=== PATIENT | male | born 1965 | race African-American/Black ===

== ENCOUNTER 2024-07-24 06:39 | Day surgery (SDC) | payer BC ==
[2024-07-24] MEDS ORDERED: CEFAZOLIN 2 GM/100 ML NaCl 2 GM/100 ML IVPB IV ONE (07:25)
[2024-07-24] MEDS ORDERED: Sodium Chloride 0.9% 1000 ML 1,000 ML ONE ×2 (07:26→11:11)
[2024-07-24] MEDS: CEFAZOLIN 2 GM/100 ML NaCl 2 GM/100 ML IVPB IV SCH (07:29)
[2024-07-24] MEDS: Sodium Chloride 0.9% 1000 ML 1,000 ML IV SCH (07:29)
[2024-07-24] MEDS ORDERED: Lactated Ringers 1,000 ML IV SCH (07:30)
[2024-07-24] MEDS ORDERED: NEURONTIN ONE (07:31)
[2024-07-24] MEDS: celeBREX 100 MG PO ONE (07:31)
[2024-07-24] MEDS: NEURONTIN PO ONE (07:31)
[2024-07-24] MEDS ORDERED: celeBREX 100 MG ONE (07:31)
[2024-07-24 07:36] VITALS: RESP 16
[2024-07-24 07:46] LABS: Hematocrit 46.1 % (40.1-51.0); Hemoglobin 14.9 g/dL (13.7-17.5); Mean Cell Volume 89.2 fL (79.0-92.2); Mean Corpuscular Hemoglobin 28.8 pg (25.7-32.2); Mean Corpuscular Hgb Concent. 32.3 g/dL (32.3-36.5); Mean Platelet Volume 9.3 fL (9.4-12.4); Platelet Count 201 x10^3/uL (163-337); Red Blood Count 5.17 x10^6/uL (4.63-6.08); Red Cell Distribution Width 14.2 % (11.6-14.4); White Blood Count 3.5 x10^3/uL (4.23-9.07)
[2024-07-24 07:57] LABS: ALBUMIN 3.9 g/dL (3.5-5.0); ANION GAP 14.4 MEQ/L (5-15); BILIRUBIN,TOTAL 0.5 mg/dL (0.2-1.3); Creatinine 1 0.71 mg/dL (0.66-1.25); EST GLOMERULAR FILTRATION RATE 106.4 ML/MIN; Potassium 4.1 mmol/L (3.5-5.1); Total Protein 6.9 g/dL (6.3-8.2)
[2024-07-24] MEDS ORDERED: Xylocaine 1% Vial 30 ML PF IJ ONE (10:19)
[2024-07-24] MEDS ORDERED: Marcaine Mpf 0.5% Vial 30 Ml ONE (10:19)
[2024-07-24] MEDS ORDERED: Versed 2 MG/2 ML Injection ONE (10:32)
[2024-07-24] MEDS ORDERED: SUBLIMAZE 100 MCG/2 ML ONE ×2 (10:32→11:44)
[2024-07-24] MEDS ORDERED: propofoL IV ONE (10:36)
[2024-07-24] MEDS ORDERED: Xylocaine-Mpf 2% 5 Ml Vial ONE (10:36)
[2024-07-24] MEDS ORDERED: ROCURONIUM BROMIDE IV ONE (10:36)
[2024-07-24] MEDS ORDERED: Lactated Ringers 0 ML IV ONE (10:41)
[2024-07-24] MEDS ORDERED: Ephedrine Sulfate 50 MG/ML ONE (11:15)
[2024-07-24] MEDS ORDERED: Zofran 4 MG/2 ML VIAL ONE (12:40)
[2024-07-24] MEDS ORDERED: BRIDION 200MG/2ML IV ONE (12:40)
--- NOTE | 2024-07-24 12:57 | XRAY ---
Indication: Left 1st MTP arthrodesis, 2nd Airam osteotomy, 2nd/3rd plantar plate repair, 2nd hammertoe, medial collateral ligament repair, and 3rd toe flexor tenotomy. Intraoperative fluoroscopy provided for 1 minute and 55 seconds. 15 digital spot images submitted for interpretation ultimately demonstrates 1st MTP arthrodesis, fusion 2nd toe, and 2nd metatarsal head Airam osteotomy. Correlate with intraoperative findings/report.
--- NOTE | 2024-07-24 13:43 | XRAY ---
1 minute 55 seconds of fluoroscopy used in surgery for a left 1st MTP arthrodesis, 2nd Airam osteotomy, 2nd/3rd plantar plate repair, 2nd hammertoe, medial collateral ligament repair, and 3rd toe flexor tenotomy.
[2024-07-24] MEDS ORDERED: DILAUDID 0.5 MG/0.5 ML SYRINGE ONE (14:20)
[2024-07-24 14:49] VITALS: PULSE 61; TEMP 96.6; O2SAT 94
[2024-07-24 15:23] VITALS: BP 147/95
[2024-07-24] MEDS ORDERED: ZOFRAN ODT 4 MG ONE (15:24)
[2024-07-24] MEDS: ZOFRAN ODT 4 MG PO ONE (15:24)
--- NOTE | 2024-07-26 10:54 | OP ---
SURGERY DATE/TIME: 07/24/2024 7449-1112 PREOPERATIVE DIAGNOSES: 1) Left foot pain. 2) First metatarsophalangeal joint osteoarthritis. 3) Severe hallux valgus. 4) Metatarsal deformity. 5) Hammertoes, digits 2 and 3. 6) Plantar plate tear. 7) Diabetes mellitus, controlled. POSTOPERATIVE DIAGNOSES: 1) Left foot pain. 2) First metatarsophalangeal joint osteoarthritis. 3) Severe hallux valgus. 4) Metatarsal deformity. 5) Hammertoes, digits 2 and 3. 6) Plantar plate tear. 7) Diabetes mellitus, controlled. PROCEDURES: 1) Left first metatarsophalangeal joint arthrodesis. 2) Airam osteotomy, second metatarsal. 3) Plantar plate repair, second metatarsophalangeal joint. 4) Hammertoe correction with proximal interphalangeal joint arthrodesis. 5) Flexor tenotomy of 3rd digit, left foot. SURGEON: Jonathan Scott MD [facility] OPERATOR: ULI Dotson, and Peng Parker NP-Danni. ANESTHESIA: General plus a postoperative ankle block to the left lower extremity. HEMOSTASIS: A thigh tourniquet set to 300 mmHg for a total of 25 total tourniquet minutes. ESTIMATED BLOOD LOSS: Approximately 30 mL. INJECTABLES: 30 mL of a 1:1 mixture of 1% lidocaine plain and 0.5% bupivacaine plain injected in an ankle block type fashion to the left ankle. INDICATIONS: Patient is a very pleasant 58-year-old male who presented to my service accompanied by his for pain to the left lower extremity, primarily as a result of overload of the second metatarsophalangeal joint. Patient did have a procedure in [address] Lofton, who was able to correct his hallux abductovalgus with a Lapidus procedure. However, patient does have such a severe, rigid contracture of his first MPJ and such tightness of his soft tissue that a recurrence of the hallux abductovalgus did occur. The intermetatarsal angle 1, 2 had been reduced very effectively; however, there was some residual dorsiflexion of the first ray resulting in overload of the second MPJ. As a result, patient did have a plantar plate tear as well as significant transverse plane and deformity of both the hallux and the 2nd digit as well as further contractures of the 3rd and 4th digits that were flexible. In conjunction with this, there was also a flexor contracture at the level of the PIPJ and a dorsiflexion contracture at the level of the MPJ of the second. Given all of these, options were discussed as far as a revision of the Lapidus which does not appear to be fully united, however, is asymptomatic versus restoring the mechanical access and restoring the weightbearing surface with a parabolic metatarsal arc. From that standpoint, patient was interested in a complete revision and decision was made to proceed with our procedure selection. Patient has been made aware of all risks, complications, and benefits of surgical intervention at this time, including, but not limited to infection, hematoma, seroma, possibility of delayed wound healing, non-wound healing, and possible need for further surgical intervention at a later date. There have been no guarantees provided as to the outcome of surgical intervention. Once again, this is not a cosmetic surgery; however, this is intended to alleviate patient's pain, restoring the normal metatarsal parabola and restoring the mechanical access of the first ray taking a majority of his weightbearing surface and offloading the second metatarsal head where, once again, the plantar plate tear and the overload is appreciated. Given that, plenty of time was allowed for the patient to ask questions, which were answered to his apparent satisfaction. It is at this time we decided to proceed. DESCRIPTION OF PROCEDURE AND FINDINGS: Patient was brought into the operating room, placed on the operating room table in the supine position. At this time, general anesthesia was administered until the patient was adequately sedated. A well-padded thigh tourniquet was applied to the patient's left lower extremity, and the tourniquet was set to 300 mmHg. At this time, the left lower extremity was prepped and draped in the typical sterile fashion and lowered onto the surgical field. The Esmarch was utilized to exsanguinate the lower extremity and the tourniquet was inflated. At this time, attention was directed over the first MPJ where a linear incision was made utilizing a 15 blade. A 15 blade was utilized to dissect, being careful not to damage any neurovascular structures along the way. Any neurovascular structures that were encountered were cauterized using Bovie as deemed appropriate. Once the capsule of the first MPJ was encountered, a medial and lateral collateral ligament release was performed. Once this was performed, a McGlamry was utilized to free up the sesamoid apparatus and the remaining soft tissue at the plantar aspect of the joint. Once this was performed, the cartilage at the first MPJ was denuded utilizing a cup and conical reamer, which was checked under fluoroscopic guidance. The capsule was extremely tight, and decision was made to not do the conical reamer on the proximal phalangeal side, and this was carried out utilizing curettage. Once this was performed, copious amounts of sterile saline were utilized to flush the site of any remaining cartilage. The 2-mm drill was then utilized to fenestrate the surface of the first metatarsal head and base of the proximal phalanx. An interfragmentary K-wire was then placed holding the position while a 0-degree [employer] plate was affixed to the dorsal aspect of the first MPJ with adequate apposition of the joint surfaces with excellent compression. This was carried out utilizing the [employer] first MPJ 0-degree plate, and a 3.4 x 34 VPC screw with a combination of locking and non-locking screws. Compression was ensured by proceeding with interfragmentary and eccentric screws after locking up the distal aspect of the plate to get as much compression as possible through the joint and then utilizing a combination of locking and non-locking screws to secure the plate to the first MPJ. Once this was performed, decision was made to proceed with the Airam osteotomy. There was a variable of uncertainty prior to the procedure at the level of the second MPJ due to the amount of overload. Stabilizing the first ray in this respect did restore some of the access of the weightbearing surface underneath the first MPJ; however, I did feel it adequate to avoid doing a floating metatarsal osteotomy and instead proceeding with a Airam osteotomy to offload the metatarsal head pressure and restore the metatarsal parabola. That being said, an 18 mm sagittal saw was then utilized to cut perpendicular to the weightbearing surface on the second metatarsophalangeal joint head after dissecting down to the level of the MPJ and performing a capsular release. Once this was performed, the head was shifted back approximately 6 mm. Once this was performed, this was checked under fluoroscopic guidance and deemed to be adequate and offloading the metatarsal head and of the second metatarsal head. Once this was performed, this was pinned and then a 14 mm partially-threaded cannulated screw was introduced dorsally making sure not to violate the surface of the articular cartilage. Once this was performed, the overhang was resected at the second MPJ. Once this was performed, the plantar plate was then repaired utilizing a MaxBraid which was drilled through the second metatarsal head to the plantar plate which was dissected and the tear was completed. Once this was performed, the MaxBraid was passed through the bottom of the foot, retrieved utilizing a skin hook, and then after drilling through the proximal phalangeal side, a was passed to pull the toe back into a no longer dislocated alignment. Once this was performed, the 2nd digit was held in a plantarflexed position and then a MaxBraid was hand tied with moderate tension to help the plantar plate heal in an improved position proximal interphalangeal joint where the joint was resected out. Once this was performed, a K-wire was then retrograded out the distal tip of the 2nd digit and then integrated down the proximal phalanx. Once this was performed, a 40 mm VPC screw was then utilized to affix the digit in the position. Following this, the foot position was assessed and deemed to be adequate, offloading the second MPJ, the second metatarsal head, as well as restoring the mechanical access underneath the first ray. Because of the severe semi-rigid contracture of the 3rd digit, decision was made to proceed with a flexor tenotomy of the 3rd digit. At this time, utilizing a 15 blade at the plantar sulcus of the 3rd digit. Following this, all incisions were cleansed with copious amounts of sterile saline. 4-0 Monocryl and 2-0 Vicryl were utilized for subcutaneous skin closure and tendon repair as well as capsular repair. Then, 3-0 nylon was utilized for skin closure in a horizontal mattress-type fashion. A dressing consisting of Betadine, Adaptic, 4 x 4, Kerlix, ABD and Tobias was applied to the patient's left lower extremity with the foot orthogonal relative to the longitudinal access of the leg. Patient was then reversed from anesthesia and returned to the postoperative anesthesia care unit with vital signs stable and vascular status intact. Patient handled the anesthesia, as well as the procedure, without significant complication. Postoperative orders as indicated in the patient's discharge chart.
== END 2024-07-24 16:02 | disposition home or self-care (01) ==
LOC: SDC 06:39
PROVIDERS: ATTEND Podiatrist Foot & Ankle Surgery
DX: M19.072 Primary osteoarthritis, left ankle and foot (principal); M79.672 Pain in left foot; M20.12 Hallux valgus (acquired), left foot; M20.42 Other hammer toe(s) (acquired), left foot; E11.9 Type 2 diabetes mellitus without complications; S93.529A Sprain of metatarsophalangeal joint of unspecified toe(s), initial encounter
CPT/HCPCS: 28232; 28285; 28308; 28313; 28750; 36415; 73630; 76000; 80053; 82947; 83036; 85027; 93005; C1713; J0690; J1171; J2250; J2405; J2704; J3010; Q0162; A9270-GY